=== PATIENT | female | born 1965 | race Caucasian/White ===

== ENCOUNTER 2019-05-30 15:36 | Emergency (ER) | payer MEDICAID ==
[~2019-05-30] VITALS: Ht 167.6 cm; Wt 55.8 kg
[~2019-05-30 15:36] MED LIST: CLONAZEPAM 1 MG1 M1; EFFEXOR XR75 MG; HYDROCHLOROTH12.5 M1 PO; LUNESTA2 MG; MEDROLDOSEPACK PO; NORCO 5-325 TA1 EACH PO; NORFLEX100 MG PO; PENICILLIN VK500 M1 PO; PRINIVIL10 MG PO; SEROQUEL 100 M100 MG PO; SEROQUEL 50 MG50 M1 NG; SEROQUEL XR150 MG; ULTRAM 50MG TAB50 MG PO; VERAPAMIL HCL120 MG PO; ZESTORETIC 20-1 EAC3 PO
[2019-05-30] MEDS ORDERED: COZAAR 50 MG TA50 M1 PO (15:49)
[2019-05-30 17:34] VITALS: BP 130/88
== END 2019-05-30 17:35 | disposition home or self-care (01) ==
LOC: M.ERS 15:36
DX: S20.212A Contusion of left front wall of thorax, initial encounter (principal); M25.552 Pain in left hip; I10 Essential (primary) hypertension; F31.9 Bipolar disorder, unspecified; F41.9 Anxiety disorder, unspecified; F17.210 Nicotine dependence, cigarettes, uncomplicated; Y04.2XXA Assault by strike against or bumped into by another person, initial encounter; Y92.89 Other specified places as the place of occurrence of the external cause; Y93.89 Activity, other specified; Y99.8 Other external cause status

== ENCOUNTER 2019-12-18 19:34 | Emergency (ER) | payer MEDICAID ==
[~2019-12-18] VITALS: Ht 167.6 cm; Wt 59.0 kg
[~2019-12-18 19:34] MED LIST changes: +COZAAR 50 MG TA50 M1 PO
[2019-12-18 19:49] VITALS: BP 146/87
[2019-12-18] MEDS ORDERED: PROAIR HFA8.5 GM INH (19:53)
[2019-12-18] MEDS ORDERED: ALBUTEROL2.5 MG/31 INH (19:53)
[2019-12-18] MEDS ORDERED: STIOLTO RESPIMAT4 GM INH (19:53)
[2019-12-18] MEDS ORDERED: MEDROLDOSEPACK PO (20:46)
== END 2019-12-18 21:00 | disposition home or self-care (01) ==
LOC: M.ERS 19:34
DX: T44.3X5A Adverse effect of other parasympatholytics [anticholinergics and antimuscarinics] and spasmolytics, initial encounter (principal); I10 Essential (primary) hypertension; F41.9 Anxiety disorder, unspecified; F31.9 Bipolar disorder, unspecified; F17.210 Nicotine dependence, cigarettes, uncomplicated; G47.00 Insomnia, unspecified; Z79.899 Other long term (current) drug therapy; Y92.89 Other specified places as the place of occurrence of the external cause; J02.9 Acute pharyngitis, unspecified

== ENCOUNTER 2020-03-03 13:56 | Emergency (ER) | payer MEDICAID ==
[~2020-03-03] VITALS: Ht 167.6 cm; Wt 54.4 kg
[~2020-03-03 13:56] MED LIST changes: +ALBUTEROL2.5 MG/31 INH; +PROAIR HFA8.5 GM INH; +STIOLTO RESPIMAT4 GM INH
[2020-03-03 14:54] LABS: ABSOLUTE EOSINOPHILS 0.1 thou/uL (0.0-0.7); ABSOLUTE LYMPHOCYTES 2.2 thou/uL (0.8-5.3); ABSOLUTE MONOCYTES 0.6 thou/uL (0.0-1.2); ABSOLUTE NEUTROPHILS 4.4 thou/uL (1.6-8.1); BASOPHILS 0.6 %; EOSINOPHILS 1.1 %; HEMATOCRIT 37.4 % (37.0-47.0); LYMPHOCYTES 29.9 %; MCH 32.6 pg (26.0-34.0); MCHC 34.7 g/dL (28.0-37.0); MCV 94.1 fL (80.0-100.0); MONOCYTES 8.1 %; MPV 9.9 fl. (7.2-11.1); NUCLEATED RBCS 0 /100WBC; PLATELET COUNT* 139 thou/uL (150-400); POLYS 60.3 %; RBC 3.97 mil/uL (4.20-5.00); RDW-CV 13.7 % (10.5-14.5); WBC 7.2 thou/uL (4.0-11.0)
[2020-03-03 14:55] LABS: CALCIUM 8.5 mg/dL (8.5-10.1); CREATININE 0.9 mg/dL (0.6-1.3); POTASSIUM 3.4 mmol/L (3.5-5.1)
[2020-03-03 15:08] LABS: ALBUMIN 3.6 g/dL (3.4-5.0); TOTAL BILIRUBIN 0.3 mg/dL (<0.1-1.0); TOTAL PROTEIN 6.6 g/dL (6.4-8.2)
[2020-03-03] MEDS ORDERED: MEDROLDOSEPACK PO (17:34)
[2020-03-03] MEDS ORDERED: VENTOLIN HFA 1818 GM INH (17:34)
[2020-03-03] MEDS ORDERED: ZPAK PO (17:34)
[2020-03-03] MEDS ORDERED: NORCO 5-325 TA1 EAC2 PO (17:35)
--- NOTE | 2020-03-03 17:46 | EKG ---
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 : 1965 Requested By: Joleen Rodarte Order Number: [id number] MD: Osvaldo Grimaldo Measurements Intervals [place] Rate: 90 P: 78 [place]: 154 QRS: 84 QRSD: 90 T: 70 QT: 364 QTc: 446 Interpretive Statements Sinus rhythm Artifact in lead(s) II,III,aVL,aVF,V4,V5,V6 and baseline wander in lead(s) I No previous ECG available for comparison Electronically Signed On 03-03-2020 17:46:09 CDT by Osvaldo Grimaldo [email or web address] <ELECTRONICALLY SIGNED> By: Osvaldo Grimaldo MD, FACC 03/03/20 1746 1433 1433 Osvaldo Grimaldo MD, [facility] /EPI
[2020-03-03 18:05] VITALS: BP 132/67
== END 2020-03-03 18:26 | disposition home or self-care (01) ==
LOC: M.ERS 13:56
PROVIDERS: Nurse Practitioner Family
DX: J44.1 Chronic obstructive pulmonary disease with (acute) exacerbation (principal); R10.13 Epigastric pain; Z20.828 Contact with and (suspected) exposure to other viral communicable diseases; I10 Essential (primary) hypertension; F17.210 Nicotine dependence, cigarettes, uncomplicated

== ENCOUNTER 2020-07-10 14:09 | Emergency (ER) | payer MEDICAID ==
[~2020-07-10] VITALS: Ht 167.6 cm; Wt 54.4 kg
[~2020-07-10 14:09] MED LIST changes: +NORCO 5-325 TA1 EAC2 PO; +VENTOLIN HFA 1818 GM INH; +ZPAK PO
[2020-07-10 15:29] LABS: ABSOLUTE BASOPHILS 0.1 thou/uL (0.0-0.2); ABSOLUTE EOSINOPHILS 0.1 thou/uL (0.0-0.7); ABSOLUTE LYMPHOCYTES 2.2 thou/uL (0.8-5.3); ABSOLUTE MONOCYTES 0.5 thou/uL (0.0-1.2); ABSOLUTE NEUTROPHILS 4.1 thou/uL (1.6-8.1); BASOPHILS 0.9 %; EOSINOPHILS 1.8 %; HEMATOCRIT 40.7 % (37.0-47.0); HEMOGLOBIN 13.9 gm/dL (12.0-15.0); LYMPHOCYTES 31.1 %; MCHC 34.1 g/dL (28.0-37.0); MCV 93.8 fL (80.0-100.0); MONOCYTES 7.5 %; MPV 8.6 fl. (7.2-11.1); NUCLEATED RBCS 0 /100WBC; PLATELET COUNT* 169 thou/uL (150-400); POLYS 58.7 %; RBC 4.34 mil/uL (4.20-5.00); RDW-CV 13.8 % (10.5-14.5)
[2020-07-10 15:38] LABS: CALCIUM 8.4 mg/dL (8.5-10.1); CREATININE 0.8 mg/dL (0.6-1.3); POTASSIUM 3.5 mmol/L (3.5-5.1)
[2020-07-10 15:43] LABS: ALBUMIN 3.8 g/dL (3.4-5.0); TOTAL BILIRUBIN 0.2 mg/dL (<0.1-1.0); TOTAL PROTEIN 6.9 g/dL (6.4-8.2)
[2020-07-10] MEDS ORDERED: FLEXERIL PO (15:45)
[2020-07-10 16:13] VITALS: BP 159/83
== END 2020-07-10 16:15 | disposition home or self-care (01) ==
LOC: M.ERS 14:09
PROVIDERS: Emergency Medicine Emergency Medical Services
DX: M79.601 Pain in right arm (principal); M79.661 Pain in right lower leg; I10 Essential (primary) hypertension; J44.9 Chronic obstructive pulmonary disease, unspecified; F17.210 Nicotine dependence, cigarettes, uncomplicated; Z79.899 Other long term (current) drug therapy; Z88.8 Allergy status to other drugs, medicaments and biological substances

== ENCOUNTER 2020-10-04 09:53 | Emergency (ER) | payer MEDICAID ==
[~2020-10-04] VITALS: Ht 167.6 cm; Wt 53.1 kg
[~2020-10-04 09:53] MED LIST changes: +FLEXERIL PO
[2020-10-04 10:16] LABS: ABSOLUTE EOSINOPHILS 0.1 thou/uL (0.0-0.7); ABSOLUTE LYMPHOCYTES 1.9 thou/uL (0.8-5.3); ABSOLUTE MONOCYTES 0.4 thou/uL (0.0-1.2); ABSOLUTE NEUTROPHILS 5.4 thou/uL (1.6-8.1); BASOPHILS 0.5 %; EOSINOPHILS 0.9 %; HEMATOCRIT 43.5 % (37.0-47.0); HEMOGLOBIN 14.6 gm/dL (12.0-15.0); LYMPHOCYTES 24.6 %; MCH 31.4 pg (26.0-34.0); MCHC 33.6 g/dL (28.0-37.0); MCV 93.4 fL (80.0-100.0); MONOCYTES 4.8 %; MPV 8.7 fl. (7.2-11.1); NUCLEATED RBCS 0 /100WBC; PLATELET COUNT* 188 thou/uL (150-400); POLYS 69.2 %; RBC 4.65 mil/uL (4.20-5.00); RDW-CV 13.2 % (10.5-14.5); WBC 7.8 thou/uL (4.0-11.0)
[2020-10-04 10:24] LABS: CALCIUM 8.4 mg/dL (8.5-10.1); POTASSIUM 3.4 mmol/L (3.5-5.1)
[2020-10-04 10:29] LABS: ALBUMIN 3.9 g/dL (3.4-5.0); TOTAL BILIRUBIN 0.4 mg/dL (<0.1-1.0); TOTAL PROTEIN 7.4 g/dL (6.4-8.2)
[2020-10-04] MEDS ORDERED: PREDNISONE 10 M10 MG PO (11:53)
[2020-10-04] MEDS ORDERED: DOXYCYCLINE 10100 MG PO (11:53)
[2020-10-04] MEDS ORDERED: TRAMADOL 50 MG50 MG PO (11:53)
[2020-10-04 12:23] VITALS: BP 143/84
--- NOTE | 2020-10-05 12:26 | EKG ---
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 : 1965 Requested By: Bogdan Alatorre Order Number: [id number] MD: Ricardo Coronel Measurements Intervals [place] Rate: 100 P: 83 [place]: 177 QRS: 80 QRSD: 115 T: 71 QT: 348 QTc: 449 Interpretive Statements Sinus tachycardia GUILLE, consider biatrial enlargement Probable left ventricular hypertrophy Minimal ST elevation, inferior leads Compared to ECG 03/03/2020 14:33:34 ST (T wave) deviation now present Sinus rhythm no longer present Electronically Signed On 10-05-2020 12:26:00 CDT by Ricardo Coronel [email or web address] <ELECTRONICALLY SIGNED> By: Mary Coronel MD, FACC 10/05/20 1226 1000 1000 Mary Coronel MD, [facility] /EPI
== END 2020-10-04 12:24 | disposition home or self-care (01) ==
LOC: M.ERS 09:53
PROVIDERS: Emergency Medicine
DX: J44.1 Chronic obstructive pulmonary disease with (acute) exacerbation (principal); Z20.822 Contact with and (suspected) exposure to COVID-19; I10 Essential (primary) hypertension; F17.210 Nicotine dependence, cigarettes, uncomplicated; Z88.8 Allergy status to other drugs, medicaments and biological substances

== ENCOUNTER 2021-05-17 18:52 | Emergency (ER) | payer MEDICAID ==
[~2021-05-17] VITALS: Ht 167.6 cm; Wt 54.4 kg
[~2021-05-17 18:52] MED LIST changes: +DOXYCYCLINE 10100 MG PO; +PREDNISONE 10 M10 MG PO; +TRAMADOL 50 MG50 MG PO
[2021-05-17 19:25] LABS: ABSOLUTE BASOPHILS 0.1 thou/uL (0.0-0.2); ABSOLUTE EOSINOPHILS 0.2 thou/uL (0.0-0.7); ABSOLUTE LYMPHOCYTES 2.4 thou/uL (0.8-5.3); ABSOLUTE MONOCYTES 0.5 thou/uL (0.0-1.2); ABSOLUTE NEUTROPHILS 2.7 thou/uL (1.6-8.1); BASOPHILS 0.9 %; EOSINOPHILS 2.7 %; HEMATOCRIT 40.8 % (37.0-47.0); HEMOGLOBIN 13.7 gm/dL (12.0-15.0); LYMPHOCYTES 41.2 %; MCH 30.8 pg (26.0-34.0); MCHC 33.6 g/dL (28.0-37.0); MCV 91.5 fL (80.0-100.0); MPV 8.4 fl. (7.2-11.1); NUCLEATED RBCS 0 /100WBC; PLATELET COUNT* 190 thou/uL (150-400); POLYS 46.2 %; RBC 4.46 mil/uL (4.20-5.00); RDW-CV 14.5 % (10.5-14.5); WBC 5.8 thou/uL (4.0-11.0)
[2021-05-17 19:39] LABS: URINE BILIRUBIN NEGATIVE (Negative); URINE BLOOD NEGATIVE (Negative); URINE CLARITY CLEAR; URINE COLOR YELLOW; URINE GLUCOSE-RANDOM NEGATIVE (Negative); URINE KETONES NEGATIVE (Negative); URINE LEUKOCYTES-REFLEX NEGATIVE (Negative); URINE NITRITE-REFLEX NEGATIVE (Negative); URINE PROTEIN NEGATIVE (Negative); URINE SPECIFIC GRAVITY >= 1.030 (1.005-1.030); URINE UROBILINOGEN 0.2 E.U./dl (0.2-1.0)
[2021-05-17 19:44] LABS: CALCIUM 8.3 mg/dL (8.5-10.1); CREATININE 0.9 mg/dL (0.6-1.3); POTASSIUM 3.3 mmol/L (3.5-5.1)
[2021-05-17 19:48] LABS: ALBUMIN 3.7 g/dL (3.4-5.0); MAGNESIUM 2.3 mg/dL (1.8-2.4); TOTAL BILIRUBIN 0.4 mg/dL (<0.1-1.0); TOTAL PROTEIN 7.1 g/dL (6.4-8.2)
[2021-05-17 19:48] LABS: AMP/METHAMP Negative (Negative); BARBITURATES Negative (Negative); BENZODIAZEPINES Negative (Negative); COCAINE Negative (Negative); METHADONE Negative (Negative); OPIATES Negative (Negative); PCP Negative (Negative); THC Negative (Negative)
[2021-05-17] MEDS ORDERED: PREDNISONE50 MG PO (21:02)
[2021-05-17] MEDS ORDERED: PROTONIX40 MG PO (21:02)
[2021-05-17] MEDS ORDERED: CARAFATE 1 GM TA1 GM PO (21:02)
[2021-05-17 21:10] VITALS: BP 111/70
--- NOTE | 2021-05-18 16:01 | EKG ---
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: : 1965 Requested By: Yvonne Matos Order Number: [id number] MD: Kevin King Measurements Intervals [place] Rate: 94 P: 79 [place]: 136 QRS: 73 QRSD: 119 T: 65 QT: 365 QTc: 457 Interpretive Statements Sinus rhythm Nonspecific intraventricular conduction delay Minor nonspecific ST-T changes Compared to ECG 10/04/2020 10:00:16 Intraventricular conduction delay now present Sinus tachycardia no longer present ST (T wave) deviation still present Electronically Signed On 05-18-2021 16:01:09 CHART CLERK by Kevin King [email or web address] <ELECTRONICALLY SIGNED> By: Kevin King MD, FACC 05/18/21 1601 58 58 Kevin King MD, FACC /EPI
== END 2021-05-17 21:12 | disposition home or self-care (01) ==
LOC: M.ERS 18:52
PROVIDERS: Emergency Medicine
DX: K92.2 Gastrointestinal hemorrhage, unspecified (principal); Z20.822 Contact with and (suspected) exposure to COVID-19; I10 Essential (primary) hypertension; F41.9 Anxiety disorder, unspecified; J44.9 Chronic obstructive pulmonary disease, unspecified; F17.210 Nicotine dependence, cigarettes, uncomplicated; Z79.899 Other long term (current) drug therapy; Z88.8 Allergy status to other drugs, medicaments and biological substances